=== PATIENT | male | born 2000 | race Hispanic/Latino ===

== ENCOUNTER 2020-01-13 17:59 | Inpatient (IN) | payer OTHER ==
[~2020-01-13] VITALS: Ht 180.3 cm; Wt 87.0 kg
[2020-01-13] MEDS ORDERED: ZOLO100T PO (18:07)
[2020-01-13] MEDS ORDERED: XANA1TAB2 PO (18:07)
[2020-01-13] MEDS ORDERED: MAALOX 30 ML SUSP *UDC PO PRN (21:30)
[2020-01-13] MEDS ORDERED: MOM 30ML SUSPENSION UDC PO PRN (21:30)
[2020-01-13] MEDS ORDERED: IBUPROFEN 400 MG TAB PO PRN (21:30)
[2020-01-13] MEDS ORDERED: SERT50TA29 PO (22:22)
[2020-01-13 22:30] VITALS: BP 117/68
[2020-01-13] MEDS ORDERED: RISP3TAB3 PO (22:33)
[2020-01-13] MEDS ORDERED: RISP1TAB3 PO (22:33)
[2020-01-13] MEDS ORDERED: LORazepam 1 MG TAB PO ONE (23:30)
[2020-01-13] MEDS ORDERED: haloperidoL 5 MG TAB PO ONE (23:30)
[2020-01-13] MEDS ORDERED: diphenhydrAMINE 50 MG CAP PO ONE (23:30)
[2020-01-14 06:12] VITALS: BP 126/59
[2020-01-14] MEDS ORDERED: NICOTINE 21MG/24HR 1 EA TRANSDERMAL TD PRN (09:00)
[2020-01-14] MEDS ORDERED: INFLUENZA QUADRIVALENT PF VACCINE 0.5ML SYRINGE (90686) IM ONE (09:00)
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
[2020-01-14] MEDS ORDERED: hydrOXYzine 25 MG TAB PO PRN (14:15)
--- NOTE | 2020-01-14 15:12 | HPEPDOC ---
General Date of Admission Jan 13, 2020 at 21:18 Date of Service: Jan 14, 2020 Chief Complaint The patient is a 19-year-old male who presented as a transfer from [facility] for depression History of Present Illness Patient is a 19-year-old male with a history of depression, anxiety and reported low WBC who presented to the [facility] for depression. . He has been admitted to inpatient mental health unit under the care of psychiatry hospital service was called for medical screening evaluation. Patient reports a mild cough. He denies any nausea, vomiting, chest pain, shortness of breath, palpitations, abdominal pain, obstipation, diarrhea, or urinary discomfort. He has not expense any fevers or chills over the last 2 weeks. He notes that his appetite is fairly normal has reported a slight decrease in his weight. Home Medications Scheduled Risperidone (Risperidone) 3 Mg Tablet, 3 MG PO QHS for , (Reported) Sertraline HCl (Sertraline HCl) 50 Mg Tablet, 150 MG PO DAILY for , (Reported) Scheduled PRN Alprazolam (Xanax) 1 Mg Tablet, 1 MG PO TID PRN for ANXIETY, (Reported) Risperidone (Risperidone) 1 Mg Tablet, 1 MG PO Q12H PRN for AGITATION, (Reported) Allergies Coded Allergies: bee venom protein (honey bee) (Verified Allergy, Unknown, 01/13/20) Past Medical History Medical History Depression, Anxiety, reported low WBC Surgical History Patient denies any prior surgeries Family History - Mother and father with no reported past medical history Social History - Denies the use of alcohol; patient was that he smoked for 2 years. He also reports use of cocaine and heroin - Denies recent travel or sick contacts - Lives with his father - Occupation; he is currently unemployed and has been in the recovery Review of Systems Other systems 10 point review of systems complete, all negative otherwise stated in HPI Vital Signs - Vitals: BP 126/59, HR 56, RR 16, Sat 98%RA, Temp 98.1F - General: Lying in bed, No acute distress, Speaking in full sentences, AAOx3 - HEENT: NC, AT, PERRLA, EOMI - CVS: RRR, +S1S2 - Lungs: Fair air entry bilaterally, No appreciable wheezing / rales / rhonchi - Abdomen: Soft, Non-distended, Non-tender - Extremities: No lower extremity edema, No calf tenderness - Neuro: No focal motor or sensory deficit - Skin: No visible rashes Plan / VTE VTE Prophylaxis Ordered?: Yes Plan Plan Depression/Anxiety - Patient has been admitted to the [facility] under the care of psychiatry - This is currently being managed by psychiatry Reported low WBC - Will check CBC No significant past medical history DVT prophylaxis - c/w early ambulation Female newspaper photo editor was present for the duration of this history and physical examination Thank you for this consultation; Please reconsult as needed. EDSON SEGOVIA MD Jan 14, 2020 15:12
[2020-01-14] MEDS: SERTRALINE HCL 50 MG TAB PO SCH (15:13)
[2020-01-14 15:40] LABS: BASO % 0.4 % (0.0-1.0); EOS % 0.7 % (0.0-3.0); HEMATOCRIT 46.2 % (42.0-52.0); HEMOGLOBIN 15.8 g/dl (13.5-17.5); LYMPH # 1.4 10^3/uL (1.5-5.0); LYMPH % 25.1 % (24.0-44.0); MEAN CORPUSCULAR HEMOGLOBIN 31.5 pg (27.0-33.0); MEAN CORPUSCULAR HGB CONC 34.2 g/dl (32.0-36.5); MONO # 0.3 10^3/uL (0.0-0.8); MONO % 6.2 % (0.0-5.0); NEUTROPHILS # 3.7 10^3/uL (1.5-8.5); NEUTROPHILS % 67.2 % (36.0-66.0); PLATELET COUNT, AUTOMATED 198 10^3/uL (150-450); RED BLOOD COUNT 5.02 10^6/uL (4.30-6.10); WHITE BLOOD COUNT 5.5 10^3/uL (4.0-10.0)
[2020-01-14 17:50] VITALS: BP 134/65
[2020-01-14] MEDS: traZODone 50 MG TAB PO PRN (20:13)
[2020-01-14] MEDS: risperiDONE 3 MG TAB PO SCH (20:13)
[2020-01-15 06:03] VITALS: BP 110/55
--- NOTE | 2020-01-15 08:31 | MHIPNPDOC ---
[facility] Progress Note Progress Note Inpatient Progress Note Anastacio Lynn MRN: N/A Date of : N/A Date of Service: 01/15/2020 History of Present Illness The patient, a 19-year-old man, with a history of significant use is brought in after reportedly making suicidal threats after he recently arrived at a rehab in the [facility] [address] ordered from [facility] to attend this rehab and he is currently on probation. The patient was brought in and transferred from another facility. When the patient was met with. He described incredibly vague symptoms of depression and trauma, however, was unable to name any specifics. He appeared fo cused on attempting to have this provider advocate for him in order to not go to his court ordered rehab. He comes from [facility] and reports that he feels that his mental health is not being attended to and that the superior court judge doesn't understand his current problems. The patient generally focuses on this during the interview interspersed with questions throughout. Interval History Narrative: The patient is met with the treatment team. He currently wants to return to [place], reports that he is uninterested in staying much longer in our unit. Affective: The patient claims vague low mood, but has no mental status signs. Psychotic: The patient denies at this time. Anxiety: The patient reports worry about his situation once he leaves. Eating and sleeping behaviors: Within normal limits. Group Attendance: None. Medication Side effects: See ROS below Behavioral problems/significant events overnight: None. Staff Report: Generally focused on attempting to get various things such as co ntrolled substances and intersession in order to not have to return to rehab. Review Of Systems Patient denies any side effects or physical problems at this time. Psychotherapy None on this visit. Vital Signs Reviewed. Mental Status Examination General: Well dressed with good hygiene Speech: Spontaneous and fluid Thought processes: Perseverative on not going back to rehab MSK: Smooth and coordinated gait, no signs of tremors or involuntary orofacial movements Thought content: Future orientated Abstract reasoning, and computation: Intact Description of associations: Intact Description of abnormal or psychotic thoughts: Denies any suicidal or homicidal ideation. Denies any auditory or visual hallucinations. Does not appear to be responding to internal stimuli. Does not appear to be endorsing any bizarre or paranoid ideation Judgment: Limited. Insight: Limited. Orientation: Alert and orientated 3 Cognition: Grossly normal Recent and remote memory: Intact Attention span and concentration: Intact Fund of knowledge: Adequate Mood: "okay" Affect: Euthymic with a full range Diagnoses Unspecified depressive disorder. Strongly concerned for fabrication. Cocaine use disorder, severe. Antisocial personality characteristics. Strong concern for malingering. Assessment and Plan Unspecified depressive disorder: Resume home medications without Xanax. Cocaine use disorder: Recommend continued rehab. Antisocial personality characteristic/concern for malingering: Patient will be transferred back to either [facility] or rehab once we are able to figure out the transportation arrangements, currently the place that he came from is closed. Will continue at this time. Disposition Discharge tomorrow. Time Spent 15 minutes. Wednesday Vital Signs Vital Signs Date Time Temp Pulse Resp B/P (MAP) Pulse Ox O2 Delivery O2 Flow Rate FiO2 01/15/20 06:03 98.5 57 12 110/55 (73) 01/13/20 18:01 98 Laboratory Data 24H Labs Laboratory Tests 2 01/14/20 15:26: Immature Granulocyte % (Auto) 0.4, Neutrophils (%) (Auto) 67.2H, Lymphocytes (%) (Auto) 25.1, Monocytes (%) (Auto) 6.2H, Eosinophils (%) (Auto) 0.7, Basophils (%) (Auto) 0.4, Neutrophils # (Auto) 3.7, Lymphocytes # (Auto) 1.4L, Monocytes # (Auto) 0.3, Eosinophils # (Auto) 0.0, Basophils # (Auto) 0.0, Nucleated Red Blood Cells % (auto) 0.0 CBC/BMP Laboratory Tests 01/14/20 15:26 Current Medications Current Medications Medications (Trade) Dose Ordered Sig/Seven Route PRN Reason Start Time Stop Time Status Last Admin Dose Admin Al Hydrox/Mg Hydrox/Simethicone (Mylanta) 30 ml Q4HP PRN PO HEARTBURN/INDIGESTION 01/13/20 21:30 Home Med (Med Rec Complete!) ASDIRECTED XX 01/13/20 22:45 01/13/20 22:39 DC Hydroxyzine HCl (Atarax) 25 mg Q6HP PRN PO ANXIETY 01/14/20 14:15 01/14/20 15:13 Ibuprofen (Advil) 400 mg Q6HP PRN PO PAIN 01/13/20 21:30 Magnesium Hydroxide (Milk Of Magnesia) 30 ml DAILYPRN PRN PO CONSTIPATION 01/13/20 21:30 Nicotine (Nicoderm Cq 21mg) 1 patch DAILYPRN PRN TD NICOTINE WITHDRAWAL 01/14/20 09:00 Risperidone (RisperDAL) 3 mg QHS PO 01/14/20 21:00 01/14/20 20:13 Sertraline HCl (Zoloft) 150 mg DAILY PO 01/14/20 15:00 01/14/20 15:13 Trazodone HCl (Desyrel) 50 mg QHSP PRN PO INSOMNIA 01/13/20 21:30 01/14/20 20:13 Allergies Coded Allergies: bee venom protein (honey bee) (Verified Allergy, Unknown, 01/13/20) JAMAAL BOSE DO Jan 15, 2020 08:30
[2020-01-15] MEDS: SERTRALINE HCL 50 MG TAB PO SCH (09:29)
[2020-01-15] MEDS: NICOTINE POLACRILEX 2 MG GUM PO PRN (15:30)
[2020-01-15 18:04] VITALS: BP 130/58
[2020-01-15] MEDS: risperiDONE 3 MG TAB PO SCH (20:22)
[2020-01-15] MEDS: traZODone 50 MG TAB PO PRN (20:22)
[2020-01-15] MEDS ORDERED: cloNIDine 0.1 MG TAB PO PRN (21:00)
[2020-01-15] MEDS ORDERED: ONDANSETRON 4 MG TAB (S0181) PO PRN (21:00)
[2020-01-16 05:49] VITALS: BP 110/53
[2020-01-16] MEDS: SERTRALINE HCL 50 MG TAB PO SCH (09:17)
[2020-01-16 09:39] VITALS: BP 146/67
--- NOTE | 2020-01-16 09:42 | MHIPNPDOC ---
[facility] Progress Note Progress Note DATE OF SERVICE: 01/16/20 HISTORY: . VITAL SIGNS: See below. NEW TEST RESULTS: . CURRENT MEDICATIONS: See below. MENTAL STATUS EXAMINATION: Patient is a -year old male, who is . Speech: Is . Language skills are . Thought processes including: . Thought content: . Abstract reasoning, and computation: . Description of associ ations: . Description of abnormal or psychotic thoughts: . Judgment: . Insight: [very limited, good, fair. poor]. Orientation: . Recent and remote memory: . Attention span and concentration: . Language: . Fund of knowledge: . Mood: . Affect: . DIAGNOSES: 1. . 2. . 3. . ASSESSMENT: MANAGEMENT PLAN: . TIME SPENT: minutes. Vital Signs Vital Signs Date Time Temp Pulse Resp B/P (MAP) Pulse Ox O2 Delivery O2 Flow Rate FiO2 01/16/20 09:39 98.0 84 18 146/67 (93) 01/13/20 18:01 98 Current Medications Current Medications Medications (Trade) Dose Ordered Sig/Seven Route PRN Reason Start Time Stop Time Status Last Admin Dose Admin Al Hydrox/Mg Hydrox/Simethicone (Mylanta) 30 ml Q4HP PRN PO HEARTBURN/INDIGESTION 01/13/20 21:30 Clonidine HCl (Catapres) 0.1 mg Q4HP PRN PO anxiety/withdrawl symptoms 01/15/20 21:00 Home Med (Med Rec Complete!) ASDIRECTED XX 01/13/20 22:45 01/13/20 22:39 DC Hydroxyzine HCl (Atarax) 25 mg Q6HP PRN PO ANXIETY 01/14/20 14:15 01/14/20 15:13 Ibuprofen (Advil) 400 mg Q6HP PRN PO PAIN 01/13/20 21:30 Magnesium Hydroxide (Milk Of Magnesia) 30 ml DAILYPRN PRN PO CONSTIPATION 01/13/20 21:30 Nicotine (Nicoderm Cq 21mg) 1 patch DAILYPRN PRN TD NICOTINE WITHDRAWAL 01/14/20 09:00 01/15/20 15:05 DC Nicotine (Nicorette) 2 mg Q4HP PRN PO NICOTINE WITHDRAWAL 01/15/20 15:00 01/15/20 15:30 Ondansetron HCl (Zofran) 4 mg Q4HP PRN PO NAUSEA OR VOMITING 01/15/20 21:00 Risperidone (RisperDAL) 3 mg QHS PO 01/14/20 21:00 01/15/20 20:22 Sertraline HCl (Zoloft) 150 mg DAILY PO 01/14/20 15:00 01/16/20 09:17 Trazodone HCl (Desyrel) 50 mg QHSP PRN PO INSOMNIA 01/13/20 21:30 01/15/20 20:22 Allergies Coded Allergies: bee venom protein (honey bee) (Verified Allergy, Unknown, 01/13/20) JAMAAL BOSE DO Jan 16, 2020 09:42
[2020-01-16] MEDS: NICOTINE POLACRILEX 2 MG GUM PO PRN ×2 (10:14→17:59)
[2020-01-16] MEDS ORDERED: DICYCLOMINE 10 MG CAP PO PRN (11:30)
[2020-01-16 13:02] VITALS: BP 125/65
--- NOTE | 2020-01-16 13:39 | MHDSPDOC ---
[facility] Discharge Summary Discharge Summary DATE OF ADMISSION: Jan 13, 2020 at 21:18 DATE OF DISCHARGE: 01/16/20 Discharge Anastacio Lynn MRN: N/A Date of : N/A Date of Service: 01/16/2020 Diagnoses Unspecified depressive disorder. Strongly concerned for fabrication. Cocaine use disorder, severe. Antisocial personality characteristics. Strong concern for malingering. History of Present Illness The patient, a 19-year-old man, with a history of significant use is brought in after reportedly making suicidal threats after he recently arrived at a rehab in the [facility] [address] from [facility] to attend this rehab and he is currently on probation. The patient was brought in and transferred from another facility. When the patient was met with. He described incredibly vague symptoms of depression and trauma, however, was unable to name any specifics. He appeared focused on attempting to have this provider advocate for him in order to not go to his court ordered rehab. He comes from [facility] and reports that he feels that his mental health is not being attended to and that the claim technician doesn't understand his current problems. The patient generally focuses on this during the interview interspersed with questions throughout. Consultants Involved Hospitalist/PCP screening Treatment and Progress On The Unit Patient was resumed on his home medications. There was strong concern for malingering as he generally tried to malinger his way out of rehab. Eventually, when asked about suicide, he denied any and he did not wish to stay longer on our inpatient unit as he was not given Ativan, benzodiazepine, Suboxone, or a means to avoid his hospital security officer ernestine from him not going to his rehab program. The patient was eventually triaged back to rehab, however they declined to take him back and thus paid for a bus ticket to [place] where he would be able to deal with this care. He demonstrated no problems on our unit, was in behavioral control, but attended no groups and was generally uninterested, generally spending the majority of his time attempting to get staff to give him the aforementioned. Discharge Assessment 19-year-old man with likely malingering and fabricated depressive disorder with PTSD characteristics. His observation reveals no signs or symptoms. His insight into the situation appeared to be somewhat improved, however it ultimately could be manufactured, likely secondary to antisocial personality characteristics. The patient at the time of discharge did not meet criteria for involuntary admission/extension due to having a normal mental status exam, fair insight into the situation, They are engaged in the discharge process, as well as being friendly and amenable in behavioral control and havent been engaging in any observed concerning behavior or ideation recently. They decline voluntary extension/admission at this time and must be discharged in good arnel, as Im unable to make a case for holding the patient against their will. They may have historical risk factors of admissions and other interactions with psychiatry however, those are not modifiable from a clinical perspective. The patient will need to be discharged in good arnel." this would be in the assessment/plan section (consult) and/or the discharge assessment on the discharge note. Mental Status Examination General: Well dressed with good hygiene Speech: Spontaneous and fluid Thought processes: Linear and logical MSK: Smooth and coordinated gait, no signs of tremors or involuntary orofacial movements Thought content: Future orientated Abstract reasoning, and computation: Intact Description of associations: Intact Description of abnormal or psychotic thoughts: Denies any suicidal or homicidal ideation. Denies any auditory or visual hallucinations. Does not appear to be responding to internal stimuli. Does not appear to be endorsing any bizarre or paranoid ideation. Judgment: improved Insight: improved Orientation: Alert and orientated 3 Cognition: Grossly normal Recent and remote memory: Intact Attention span and concentration: Intact Fund of knowledge: Adequate Mood: "okay" Affect: Euthymic with a full range Follow Up The social work team worked during the predischarge meeting in order to evaluate for further issues of lethality address them fully before discharge. They worked on safety planning with the patient's family members in order to ensure that the patient will have a safe and effective discharge. Time Spent The amount of time spent in the coordination of care for this patient was approximately 110 minutes. Wednesday Vital Signs/I&Os Vital Signs Date Time Temp Pulse Resp B/P (MAP) Pulse Ox O2 Delivery O2 Flow Rate FiO2 01/16/20 13:02 125/65 01/16/20 09:39 98.0 84 18 01/13/20 18:01 98 Medications Scheduled Risperidone (Risperidone) 3 Mg Tablet, 3 MG PO QHS for , (Reported) Sertraline HCl (Sertraline HCl) 50 Mg Tablet, 150 MG PO DAILY for , (Reported) Scheduled PRN Risperidone (Risperidone) 1 Mg Tablet, 1 MG PO Q12H PRN for AGITATION, (Reported) Allergies Coded Allergies: bee venom protein (honey bee) (Verified Allergy, Unknown, 01/13/20) JAMAAL BOSE DO Jan 16, 2020 13:39
[2020-01-16 16:23] VITALS: BP 118/58
[2020-01-16] MEDS: risperiDONE 3 MG TAB PO SCH (20:43)
[2020-01-16] MEDS: traZODone 50 MG TAB PO PRN (20:49)
[2020-01-17 06:00] VITALS: BP 108/60
[2020-01-17] MEDS: SERTRALINE HCL 50 MG TAB PO SCH (08:03)
[2020-01-17] MEDS: NICOTINE POLACRILEX 2 MG GUM PO PRN (08:41)
== END 2020-01-17 09:28 | disposition home or self-care (01) | DRG 754 ==
LOC: M ED 17:59 → M ED INP 21:18 → M PSY 22:14
PROVIDERS: ADMIT Psychiatry & Neurology Addiction Medicine; ATTEND Psychiatry & Neurology Addiction Medicine
DX: F32.9 Major depressive disorder, single episode, unspecified (principal); F14.20 Cocaine dependence, uncomplicated; F60.2 Antisocial personality disorder; Z76.5 Malingerer [conscious simulation]; F43.10 Post-traumatic stress disorder, unspecified; Z91.5 Personal history of self-harm; Z81.8 Family history of other mental and behavioral disorders; Z88.8 Allergy status to other drugs, medicaments and biological substances; Z79.899 Other long term (current) drug therapy; R05 Cough; D72.819 Decreased white blood cell count, unspecified